=== PATIENT | male | born 1980 | race Two or more races ===

== ENCOUNTER 2023-09-17 17:14 | Inpatient (IN) | payer MEDICAID, OTHER ==
[~2023-09-17] VITALS: Ht 165.1 cm; Wt 74.5 kg
[2023-09-17 17:57] LABS: BILIRUBIN,URINE NEGATIVE (Neg); CLARITY,URINE CLEAR (Clear); COLOR,URINE YELLOW (Yellow); GLUCOSE, URINE NEGATIVE (Neg); KETONES,URINE NEGATIVE (Neg); LEUKOCYTE ESTERASE ,URINE NEGATIVE (Neg); NITRITES, URINE NEGATIVE (Neg); OCCULT BLOOD,URINE TRACE-INTACT (Neg); PH,URINE 5.5 (4.8-8.0); PROTEIN,URINE NEGATIVE (Neg); UA COLLECTION TYPE CLN CATCH MIDSTREAM; UROBILINOGEN,URINE 0.2 E.U/dL (0.2-1.0)
[2023-09-17 18:01] LABS: BACTERIA,URINE NONE SEEN /HPF (Neg); MUCUS STRANDS MODERATE /LPF (Neg); SQUAMOUS EPITHELIAL CELL,UR NONE SEEN /LPF (FEW); WBC,URINE 0-4 /HPF (0-4)
[2023-09-17 19:03] LABS: BASOPHILS % (AUTO) 0.2 % (0-1); EOSINOPHILS % (AUTO) 0.2 % (0-6); HEMATOCRIT 41.6 % (42.0-52.0); HEMOGLOBIN 14.2 g/dl (14.0-17.9); LYMPHOCYTES # (AUTO) 1.1 X10'3 (1.1-4.8); LYMPHOCYTES % (AUTO) 8.1 % (21-51); MEAN CORPUSCULAR HEMOGLOBIN 29.2 PG (27.0-31.0); MEAN CORPUSCULAR HGB CONC 34.2 g/dL (33.0-36.5); MEAN CORPUSCULAR VOLUME 85.5 FL (78-98); MEAN PLATELET VOLUME 8.6 FL (7.4-10.4); MONOCYTES # (AUTO) 0.7 X10'3 (0-0.9); MONOCYTES % (AUTO) 4.9 % (2-12); NEUTROPHILS # (AUTO) 11.9 X10'3 (1.8-7.7); NEUTROPHILS % (AUTO) 86.6 % (42-75); PLATELET COUNT 275 X10'3 (140-440); RED BLOOD COUNT 4.87 X10'6 (4.70-6.10); RED CELL DISTRIBUTION WIDTH 13.1 % (11.5-14.5); WHITE BLOOD COUNT 13.7 X10'3 (4.5-11.0)
[2023-09-17 19:10] LABS: ALANINE AMINOTRANSFERASE 51 U/L (12-78); ALBUMIN 4.2 G/DL (3.4-5.0); ALBUMIN/GLOBULIN RATIO 1.2 (1.1-1.5); ALKALINE PHOSPHATASE 71 IU/L (46-116); ANION GAP 12 (8-16); ASPARTATE AMINO TRANSFERASE 23 U/L (10-37); BILIRUBIN,TOTAL 0.3 MG/DL (0.1-1.0); BLOOD UREA NITROGEN 12 MG/DL (7-18); BUN/CREATININE RATIO 14.5 (10.0-20.0); CALCIUM 8.9 MG/DL (8.5-10.1); CHLORIDE 104 MMOL/L (99-107); CREATININE 0.83 MG/DL (0.60-1.10); GLUCOSE 109 MG/DL (70-104); LIPASE 17 U/L (16-77); POTASSIUM 3.7 MMOL/L (3.5-5.1); SODIUM 142 MMOL/L (135-145); TOTAL CARBON DIOXIDE 25.9 MMOL/L (24-32); TOTAL PROTEIN 7.6 G/DL (6.4-8.2); eCRCL 99 ML/MIN; eGFR > 90 ML/MIN
[2023-09-17] MEDS: LIDOcaine 2% Viscous 15ml cup MM PRN (19:40)
[2023-09-17] MEDS: dicyclomine 10 MG capsule PO ONE (19:41)
[2023-09-17] MEDS: mag hydrox/Alum hydrox/simeth 30ml oral suspension PO ONE (19:42)
[2023-09-17 19:51] LABS: PRO BRAIN NATRIURETIC PEPTIDE 42 PG/ML (0-125)
[2023-09-17] MEDS ORDERED: LIDOcaine 2% Viscous 15ml cup MM ONE (20:15)
[2023-09-17] MEDS ORDERED: mag hydrox/Alum hydrox/simeth 30ml oral suspension PO ONE (20:15)
[2023-09-17] MEDS ORDERED: iohexol 300mg/ml 100ml inj. ONE (20:18)
[2023-09-17] MEDS: morphine 4 MG/ML inj SYRINge IV ONE (20:54)
[2023-09-17] MEDS: ondansetron/PF 4mg/2ml inj IV ONE (20:54)
[2023-09-17] MEDS ORDERED: temazepam 15mg capsule PO PRN (21:00)
[2023-09-17] MEDS: piperacillin/tazo 3.375gm/50ml 50 ML IV ONE (21:11)
[2023-09-17] MEDS: normal saline 1000ML IV soln IV ONE (21:11)
[2023-09-17] MEDS ORDERED: magnesium 2GM in 50ml NS 50 ML IV PRN (21:20)
[2023-09-17] MEDS ORDERED: potassium Cl 20 mEq SR tablet PO PRN ×2 (21:20)
[2023-09-17] MEDS ORDERED: magnesium hydroxide 30ml (MOM) UD suspension PO PRN (21:20)
[2023-09-17] MEDS ORDERED: ondansetron/PF 4mg/2ml inj IV PRN (21:20)
[2023-09-17] MEDS ORDERED: morphine 2 MG/ML inj. syringe IV PRN (21:20)
[2023-09-17] MEDS ORDERED: magnesium Cl slow-release 64mg tablet PO PRN (21:20)
[2023-09-17] MEDS ORDERED: mag hydrox/Alum hydrox/simeth 30ml oral suspension PO PRN (21:20)
[2023-09-17] MEDS ORDERED: acetaminophen 325mg tablet PO PRN ×2 (21:20)
[2023-09-17] MEDS ORDERED: potassium Cl 40MEQ/1/2NS 520ml 520 ML IV PRN (21:20)
[2023-09-17] MEDS ORDERED: magnesium 4gm in 100ml NS 100 ML IV PRN (21:20)
[2023-09-17] MEDS ORDERED: HYDROcodone/acetaminophen 5mg/325mg tablet PO PRN (21:20)
[2023-09-17] MEDS: HYDROcodone/acetaminophen 10/325mg tab PO PRN (21:47)
[2023-09-18] VITALS (22 sets, daily range): BP systolic 97–133; BP diastolic 56–85; PULSE 74–98; RESP 15–25; TEMP 97.5–99; O2SAT 90–99
[2023-09-18] MEDS: normal saline 1000ml 1,000 ML IV SCH
[2023-09-18] MEDS: morphine 2 MG/ML inj. syringe IV PRN (00:18)
[2023-09-18] MEDS: piperacillin/tazo 3.375gm/50ml 50 ML IV SCH (01:52)
[2023-09-18 06:09] LABS: APTT 30 SECONDS (22-32); PROTHROMBIN TIME 10.8 SECONDS (9.0-12.0)
[2023-09-18 06:18] LABS: BASOPHILS % (AUTO) 0.1 % (0-1); EOSINOPHILS % (AUTO) 0 % (0-6); HEMOGLOBIN 13.7 g/dl (14.0-17.9); LYMPHOCYTES # (AUTO) 1.1 X10'3 (1.1-4.8); LYMPHOCYTES % (AUTO) 6.6 % (21-51); MEAN CORPUSCULAR HEMOGLOBIN 28.8 PG (27.0-31.0); MEAN CORPUSCULAR HGB CONC 33.6 g/dL (33.0-36.5); MEAN CORPUSCULAR VOLUME 85.8 FL (78-98); MEAN PLATELET VOLUME 8.8 FL (7.4-10.4); MONOCYTES # (AUTO) 1.2 X10'3 (0-0.9); MONOCYTES % (AUTO) 7.2 % (2-12); NEUTROPHILS # (AUTO) 14.6 X10'3 (1.8-7.7); NEUTROPHILS % (AUTO) 86.1 % (42-75); PLATELET COUNT 288 X10'3 (140-440); RED BLOOD COUNT 4.78 X10'6 (4.70-6.10); RED CELL DISTRIBUTION WIDTH 13.4 % (11.5-14.5)
[2023-09-18 06:22] LABS: ALANINE AMINOTRANSFERASE 46 U/L (12-78); ALBUMIN 3.9 G/DL (3.4-5.0); ALBUMIN/GLOBULIN RATIO 1.1 (1.1-1.5); ALKALINE PHOSPHATASE 74 IU/L (46-116); ANION GAP 10 (8-16); ASPARTATE AMINO TRANSFERASE 19 U/L (10-37); BILIRUBIN,TOTAL 0.5 MG/DL (0.1-1.0); BLOOD UREA NITROGEN 8 MG/DL (7-18); BUN/CREATININE RATIO 9.1 (10.0-20.0); CALCIUM 8.1 MG/DL (8.5-10.1); CHLORIDE 103 MMOL/L (99-107); CREATININE 0.88 MG/DL (0.60-1.10); GLUCOSE 133 MG/DL (70-104); POTASSIUM 3.3 MMOL/L (3.5-5.1); SODIUM 140 MMOL/L (135-145); TOTAL CARBON DIOXIDE 26.9 MMOL/L (24-32); TOTAL PROTEIN 7.5 G/DL (6.4-8.2); eCRCL 93 ML/MIN; eGFR > 90 ML/MIN
[2023-09-18] MEDS: heparin, porcine 5000 units/ml vial SQ SCH (08:00)
[2023-09-18] MEDS: docusate sod 100mg capsule PO SCH (08:00)
[2023-09-18] MEDS ORDERED: glycopyrrolate 0.2mg/ml inj ONE (08:05)
[2023-09-18] MEDS ORDERED: neostigmine methylsulfate 1 MG/ML 10ml vial ONE (08:05)
[2023-09-18] MEDS ORDERED: sevoflurane 250ml liquid IH ONE (08:05)
[2023-09-18] MEDS ORDERED: fentaNYL/PF 50MCG/1 ML 2ML syringe ONE (08:11)
[2023-09-18] MEDS ORDERED: midazolam 1 mg/ML 2ml injection ONE (08:11)
[2023-09-18] MEDS ORDERED: propofol inj 20 ML IV ONE (08:23)
[2023-09-18] MEDS ORDERED: rocuronium 10mg/ml inj IV ONE (08:23)
[2023-09-18] MEDS ORDERED: dexamethasone sod phosphate 4mg/ml inj. ONE (08:24)
[2023-09-18] MEDS ORDERED: LIDOcaine 2% (20mg/ml) 5ml vial ONE (08:24)
[2023-09-18] MEDS ORDERED: ondansetron/PF 4mg/2ml inj ONE (08:24)
[2023-09-18] MEDS ORDERED: morphine 4 MG/ML inj SYRINge IV PRN (08:45)
[2023-09-18] MEDS ORDERED: meperidine/PF 25mg/ml syringe IV PRN ×3 (08:45)
[2023-09-18] MEDS: ringers solution, lacted 1,000 ML IV SCH (08:45)
[2023-09-18] MEDS ORDERED: morphine 2 MG/ML inj. syringe IV PRN (08:45)
[2023-09-18] MEDS ORDERED: proCHLORperazine 10 MG/2 ml inj IV PRN (08:45)
[2023-09-18] MEDS ORDERED: ondansetron/PF 4mg/2ml inj IV PRN (08:45)
[2023-09-18] MEDS ORDERED: labetalol 20mg/4ml (5mg/ml) syringe IV PRN (08:45)
[2023-09-18] MEDS ORDERED: enalaprilat dihydrate 2.5mg/2ml vial IV PRN (08:45)
[2023-09-18] MEDS: BUPIVAcaine/PF 2.5 mg/ml (0.25%) 30ml vial IJ ONE (08:49)
[2023-09-18] MEDS: LIDOcaine 1% 30ml preserv. free vial IJ ONE (08:49)
[2023-09-18] MEDS ORDERED: ketorolac trometh. 30mg/ml inj. ONE (08:58)
[2023-09-18] MEDS ORDERED: HYDROcodone/acetaminophen 5mg/325mg tablet PO PRN (09:20)
[2023-09-18] MEDS ORDERED: naloxone 0.4 mg/ml inj IV PRN (09:20)
[2023-09-18] MEDS ORDERED: HYDROcodone/acetaminophen 10/325mg tab PO PRN (09:20)
[2023-09-18] MEDS ORDERED: LIDOcaine 1% 30ml preserv. free vial ONE (09:23)
[2023-09-18] MEDS ORDERED: BUPIVAcaine/PF 2.5mg/ml (0.25%) 10ml vial ONE (09:24)
[2023-09-18] MEDS ORDERED: magnesium 2GM in 50ml NS 50 ML IV PRN (13:10)
[2023-09-18] MEDS ORDERED: magnesium 4gm in 100ml NS 100 ML IV PRN (13:10)
[2023-09-18] MEDS ORDERED: NO HOME MEDS (15:44)
[2023-09-18] MEDS ORDERED: normal saline 500ml IV soln 500 ML IV PRN (16:45)
[2023-09-18] MEDS: K and/or MAG REPLACEMENT MC SCH (20:00)
[2023-09-19 02:00] VITALS: BP 97/56; PULSE 70; RESP 14; TEMP 98.1; O2SAT 96
[2023-09-19 06:57] VITALS: BP 104/67; PULSE 83; RESP 13; TEMP 97.9; O2SAT 96
[2023-09-19 07:28] VITALS: RESP 16; O2SAT 96
[2023-09-19 07:44] VITALS: RESP 16
[2023-09-19 08:03] LABS: ALANINE AMINOTRANSFERASE 31 U/L (12-78); ALBUMIN 2.9 G/DL (3.4-5.0); ALBUMIN/GLOBULIN RATIO 0.9 (1.1-1.5); ALKALINE PHOSPHATASE 55 IU/L (46-116); ANION GAP 6 (8-16); ASPARTATE AMINO TRANSFERASE 15 U/L (10-37); BILIRUBIN,TOTAL 0.6 MG/DL (0.1-1.0); BLOOD UREA NITROGEN 12 MG/DL (7-18); BUN/CREATININE RATIO 14.5 (10.0-20.0); CALCIUM 7.6 MG/DL (8.5-10.1); CHLORIDE 109 MMOL/L (99-107); CREATININE 0.83 MG/DL (0.60-1.10); GLUCOSE 109 MG/DL (70-104); MAGNESIUM 2.5 MG/DL (1.5-2.4); SODIUM 143 MMOL/L (135-145); TOTAL CARBON DIOXIDE 27.9 MMOL/L (24-32); TOTAL PROTEIN 6.2 G/DL (6.4-8.2); eCRCL 99 ML/MIN; eGFR > 90 ML/MIN
[2023-09-19] MEDS: amox tr/potassium clavulanate 875/125mg TAB PO SCH (09:27)
[2023-09-19] MEDS ORDERED: HYDR-3972 PO (09:46)
[2023-09-19 10:00] LABS: BASOPHILS % (AUTO) 0.3 % (0-1); EOSINOPHILS % (AUTO) 0.1 % (0-6); HEMATOCRIT 36.7 % (42.0-52.0); HEMOGLOBIN 12.3 g/dl (14.0-17.9); LYMPHOCYTES % (AUTO) 15.9 % (21-51); MEAN CORPUSCULAR HEMOGLOBIN 29.1 PG (27.0-31.0); MEAN CORPUSCULAR HGB CONC 33.4 g/dL (33.0-36.5); MEAN CORPUSCULAR VOLUME 87.1 FL (78-98); MEAN PLATELET VOLUME 8.8 FL (7.4-10.4); MONOCYTES # (AUTO) 0.9 X10'3 (0-0.9); MONOCYTES % (AUTO) 7.1 % (2-12); NEUTROPHILS # (AUTO) 9.5 X10'3 (1.8-7.7); NEUTROPHILS % (AUTO) 76.6 % (42-75); PLATELET COUNT 227 X10'3 (140-440); RED BLOOD COUNT 4.22 X10'6 (4.70-6.10); RED CELL DISTRIBUTION WIDTH 13.6 % (11.5-14.5); WHITE BLOOD COUNT 12.4 X10'3 (4.5-11.0)
[2023-09-19] MEDS ORDERED: AMOX-580 PO (10:12)
== END 2023-09-19 12:30 | disposition home or self-care (01) | DRG 233 ==
LOC: ER 17:15 → ED HOLD 21:21 → SUR 3N 09-18 00:08
PROVIDERS: ADMIT Internal Medicine; ATTEND Internal Medicine
PROC: 8E0W4CZ Robotic Assisted Procedure of Trunk Region, Percutaneous Endoscopic Approach (ICD-10-PCS; 2023-09-18)
PROC: 0DTJ4ZZ Resection of Appendix, Percutaneous Endoscopic Approach (ICD-10-PCS; principal; 2023-09-18 08:05)
DX: K35.33 Acute appendicitis with perforation, localized peritonitis, and gangrene, with abscess (principal); R65.10 Systemic inflammatory response syndrome (SIRS) of non-infectious origin without acute organ dysfunction; E87.6 Hypokalemia; K21.9 Gastro-esophageal reflux disease without esophagitis; L98.8 Other specified disorders of the skin and subcutaneous tissue
CPT/HCPCS: 36415; 71045; 74177; 76700; 80053; 81001; 82948; 83605; 83690; 83735; 83880; 84484; 85025; 85610; 85730; 87040; 87081; 93005; 99285; A4215; A4618; G0378; J1100; J1644; J1885; J2250; J2270; J2405; J2543; J2704; J2710; J3010; J3490; J7030; Q9967